=== PATIENT | male | born 1975 | race Caucasian/White ===

== ENCOUNTER 2017-05-12 03:23 | Emergency (ER) | payer SELFPAY ==
[~2017-05-12] VITALS: Ht 185.4 cm; Wt 76.2 kg
[~2017-05-12 03:23] MED LIST: ASPI-630 PO; ATOR40TA59 PO; CARV3.122 PO; CARV6.25 PO; CLOP75TA PO; LISI40TA PO; METF500T4 PO; OMEP40CA5 PO; PRAS10TA9 PO; SUCR1TAB35 PO
--- NOTE | 2017-05-12 03:27 | PHYS DOC ---
Past Medical History Past Medical History: CAD, High Cholesterol, Hypertension, [place] Additional Past Medical Histor: hernia Past Surgical History: Angioplasty Additional Past Surgical Histo: 2 cardiac stents 03/2016 Alcohol Use: None Drug Use: None Adult General Chief Complaint Chief Complaint: POST-OP PROBLEM HPI HPI Patient is a 42 year old male presenting to the emergency department for evaluation of bruising to his penis and slight swelling at the base. Patient had heart catheterization on May 08 for severe coronary artery disease following in an NSTEMI. Patient had complication as below as it appears that he had femoral artery occlusion with dissection and required vascular surgery to place several stents. Patient says that last evening he was straining to have a bowel movement and he has had no pain but he noticed that the base of his penis is slightly more swollen and there is bruising. He still says that he is having no pain and he denies any weakness numbness tingling and said that he is urinating normally. Imp: 1. arterial insufficiency right lower extremity due to right femoral artery stenosis or occlusion following heart cath and angioseal closure device. 1. emergency exploration of the right common femoral artery with thrombectomy, repair and revascularization as needed. The operation, risks and benefits were explained. 3. Right common femoral artery occlusion/mild dissection; s/p repair along with closure device removal and bovine patch angioplasty: POD #1. Per vascular sx CICI DARNELL II, MD Surgery done by Gracie Spencer Review of Systems Review of Systems Constitutional: Denies fever or chills [] Eyes: Denies change in visual acuity, redness, or eye pain [] HENT: Denies nasal congestion or sore throat [] Respiratory: Denies cough or shortness of breath [] Cardiovascular: No chest pain GI: Denies abdominal pain, nausea, vomiting, bloody stools or diarrhea [] : Denies dysuria or hematuria [] Musculoskeletal: Denies back pain or joint pain [] Integument: Positive bruising and swelling Neurologic: Denies focal weakness or sensory changes [] Allergies Allergies Allergies Coded Allergies Type Severity Reaction Last Updated Verified Sulfa (Sulfonamide Antibiotics) Allergy Intermediate 05/08/17 Yes Physical Exam Physical Exam Constitutional: Well developed, well nourished, no acute distress, non-toxic appearance. [] Cardiovascular:Heart rate regular rhythm, no murmur [] Lungs & Thorax: Bilateral breath sounds clear to auscultation [] Abdomen: Bowel sounds normal, soft, no tenderness, no masses, no pulsatile masses. [] Skin: Warm, dry, no erythema, no rash. [] Extremities: Right inguinal postoperative site is clean dry and intact with some subcutaneous hardening but there is no induration erythema or tenderness to palpation. Steri-Strips are in place. There is bruising medially to his upper scrotum into the base of his penis with slight swelling but there is no phimosis or paraphimosis. There is strong femoral dorsalis pedis and posterior tibial artery pulses palpable and his foot is warm with normal cap refill and sensation. Neurologic: Alert and oriented X 3, normal motor function, normal sensory function, no focal deficits noted. [] Current Patient Data Vital Signs Vital Signs Date Time Temp Pulse Resp B/P (MAP) Pulse Ox O2 Delivery O2 Flow Rate FiO2 05/12/17 03:38 98.1 80 18 171/98 (122) 96 Room Air 98.1 Lab Values Laboratory Tests Test 05/12/17 03:30 White Blood Count 13.7 x10^3/uL (4.0-11.0) H Red Blood Count 4.76 x10^6/uL (4.30-5.70) Hemoglobin 13.9 g/dL (13.0-17.5) Hematocrit 41.2 % (39.0-53.0) Mean Corpuscular Volume 87 fL (79-100) Mean Corpuscular Hemoglobin 29 pg (25-35) Mean Corpuscular Hemoglobin Concent 34 g/dL (31-37) Red Cell Distribution Width 14.0 % (11.5-14.5) Platelet Count 251 x10^3/uL (140-400) Neutrophils (%) (Auto) 64 % (31-73) Lymphocytes (%) (Auto) 23 % (24-48) L Monocytes (%) (Auto) 9 % (0-9) Eosinophils (%) (Auto) 3 % (0-3) Basophils (%) (Auto) 1 % (0-3) Neutrophils # (Auto) 8.8 x10^3uL (1.8-7.7) H Lymphocytes # (Auto) 3.1 x10^3/uL (1.0-4.8) Monocytes # (Auto) 1.2 x10^3/uL (0.0-1.1) H Eosinophils # (Auto) 0.5 x10^3/uL (0.0-0.7) Basophils # (Auto) 0.1 x10^3/uL (0.0-0.2) Prothrombin Time 13.2 SEC (11.7-14.0) Prothrombin Time INR 1.1 (0.8-1.1) PTT 31 SEC (24-38) Sodium Level 140 mmol/L (136-145) Potassium Level 3.7 mmol/L (3.5-5.1) Chloride Level 102 mmol/L (98-107) Carbon Dioxide Level 29 mmol/L (21-32) Anion Gap 9 (6-14) Blood Urea Nitrogen 9 mg/dL (8-26) Creatinine 0.9 mg/dL (0.7-1.3) Estimated GFR (Cockcroft-Gault) 92.1 BUN/Creatinine Ratio 10 (6-20) Glucose Level 110 mg/dL (70-99) H Calcium Level 9.8 mg/dL (8.5-10.1) Magnesium Level 2.2 mg/dL (1.8-2.4) Total Bilirubin 0.5 mg/dL (0.2-1.0) Aspartate Amino Transferase (AST) 32 U/L (15-37) Alanine Aminotransferase (ALT) 39 U/L (16-63) Alkaline Phosphatase 101 U/L (46-116) Creatine Kinase 56 U/L (39-308) Total Protein 7.6 g/dL (6.4-8.2) Albumin 3.8 g/dL (3.4-5.0) Albumin/Globulin Ratio 1.0 (1.0-1.7) Laboratory Tests 05/12/17 03:30 Laboratory Tests 05/12/17 03:30 EKG EKG [] Radiology/Procedures Radiology/Procedures [] Course & Med Decision Making Course & Med Decision Making His exam is unremarkable except for some bruising in his scrotum and penis. This occurred in the setting of having a bowel movement and increasing intrathoracic pressure. I spoke to Dr. DARNELL and told him the clinical picture. He felt that it was likely post operative blood settling from hematoma dissecting down tissue planes due to gravity. He recommended US to eval for pseudoaneurysm and if negative which he thought it would be, DC with scrotal support. Ultrasound showed no aneurysm or pseudoaneurysm he had triphasic blood flow in his femoral artery down to his popliteal area but he did still have monophasic flow in his foot. I spoke to the vascular surgeon again and he said that the patient is asymptomatic and his feet there is nothing to do and his recommendation stayed the same and that discharge is safe. Patient aware and agreeable with plan for discharge and verbalized understanding of the need for vascular surgery follow-up and strict ER return precautions discussed including worsening pain swelling inability to urinate or other general concerns. Dragon Disclaimer Dragon Disclaimer This electronic medical record was generated, in whole or in part, using a voice recognition dictation system. Departure Departure Impression: Primary Impression: Bruising of penis Additional Impression: Scrotal hematoma Disposition: 01 HOME, SELF-CARE Condition: GOOD Referrals: NO PCP (PCP) GRACIE SPENCER MD Patient Instructions: Scrotal Hematoma Additional Instructions: The vascular surgeon recommended scotal support with a towel and wear briefs as well. Call to make a follow up appointment with the vascular surgeon. Thank you ! Problem Qualifiers EVITA SCOTT DO May 12, 2017 03:27
[2017-05-12 03:38] VITALS: BP 171/98
[2017-05-12 04:02] LABS: BASO # 0.1 x10^3/uL (0.0-0.2); BASO % 1 % (0-3); EOS % 3 % (0-3); HEMATOCRIT 41.2 % (39.0-53.0); HEMOGLOBIN 13.9 g/dL (13.0-17.5); LYMPH # 3.1 x10^3/uL (1.0-4.8); LYMPH % 23 % (24-48); MEAN CORPUSCULAR HEMOGLOBIN 29 pg (25-35); MEAN CORPUSCULAR HGB CONC 34 g/dL (31-37); MEAN CORPUSCULAR VOLUME 87 fL (79-100); MONO % 9 % (0-9); NEUT % 64 % (31-73); PLATELET COUNT 251 x10^3/uL (140-400); RED BLOOD COUNT 4.76 x10^6/uL (4.30-5.70); WHITE BLOOD COUNT 13.7 x10^3/uL (4.0-11.0)
[2017-05-12 04:09] LABS: CALCIUM 9.8 mg/dL (8.5-10.1); CREATININE 0.9 mg/dL (0.7-1.3); GFR 92.1; POTASSIUM 3.7 mmol/L (3.5-5.1)
[2017-05-12 04:10] LABS: INR 1.1 (0.8-1.1); PROTHROMBIN TIME PATIENT 13.2 SEC (11.7-14.0)
[2017-05-12 04:14] LABS: ALBUMIN 3.8 g/dL (3.4-5.0); MAGNESIUM 2.2 mg/dL (1.8-2.4); TOTAL BILIRUBIN 0.5 mg/dL (0.2-1.0); TOTAL PROTEIN 7.6 g/dL (6.4-8.2)
--- NOTE | 2017-05-12 05:21 | RAD ---
Bilateral lower extremity venous Doppler ultrasound History: RT GROIN/SCROTAL/PENILE SWELLING AND DISCOLORATION. Comparison: None. Procedure: Color flow Doppler, Doppler spectral analysis, and 2D images are obtained with and without compression in the area of the common femoral vein, superficial femoral vein - femoral vein junction, main femoral vein (superficial femoral vein) and popliteal vein. Veins of the proximal calf are also imaged. Findings: There is normal color flow, augmentation, and compressibility of all visualized vein segments. No evidence of deep venous thrombus is present. Profunda vein unable to be visualized due to right groin bandages and sutures. IMPRESSION: No evidence of right lower extremity deep venous thrombosis. Electronically signed by: Marbin Oliver MD (05/12/2017 5:17 AM) [facility]
--- NOTE | 2017-05-12 05:25 | RAD ---
Right LOWER EXTREMITY DUPLEX ARTERY ULTRASOUND Indication: RT SIDED ANGIOSEAL WEDS. HAD COMPLICATIONS/DISSECTION. SCANNED HIM WEDS POST ANGIO/ COLD PALE LEG NO FLOW TO FOOT/MONOPHASIC FROM MID AORTA TO NABIL. TODAY PT C/O RT GROIN/SCROTAL/PENILE SWELLING AND DISCOLORATION. Comparison: None. Procedure: Real-time grayscale, color flow Doppler, and Doppler spectral waveform analysis of the arterial system of the lower extremity is performed. Findings: Normal triphasic waveforms are present in the common femoral artery, superficial femoral artery, popliteal artery, anterior tibial artery, and posterior tibial artery. There is monophasic waveform in the dorsalis pedis artery. The profunda artery is obscured due to bandage. Right common iliac artery waveform is triphasic. No evidence of right inguinal hernia. No obvious right varicocele. Visualized right testicle is normal. IMPRESSION: Monophasic waveform in the dorsalis pedis artery. Right lower extremity waveforms are otherwise triphasic. Electronically signed by: Marbin Oliver MD (05/12/2017 5:22 AM) [facility]
== END 2017-05-12 05:05 | disposition home or self-care (01) ==
LOC: ER 03:23
DX: S30.21XA Contusion of penis, initial encounter (principal); S30.22XA Contusion of scrotum and testes, initial encounter; I77.1 Stricture of artery; I25.10 Atherosclerotic heart disease of native coronary artery without angina pectoris; E78.00 Pure hypercholesterolemia, unspecified; I10 Essential (primary) hypertension; I25.2 Old myocardial infarction; Z95.5 Presence of coronary angioplasty implant and graft; Z88.2 Allergy status to sulfonamides; X58.XXXA Exposure to other specified factors, initial encounter; Y93.89 Activity, other specified; Y92.89 Other specified places as the place of occurrence of the external cause; Y99.8 Other external cause status
CPT/HCPCS: 36415; 80053; 82550; 83735; 85027; 85610; 85730; 93923; 93971; 99285-25